=== PATIENT | female | born 2000 | race Caucasian/White ===

== ENCOUNTER 2018-09-14 19:01 | Emergency (ER) | payer MEDICAID ==
[~2018-09-14] VITALS: Ht 160 cm; Wt 104.0 kg
[2018-09-14 22:11] LABS: BASOPHILS % 0.4 % (0.0-2.0); EOSINOPHILS % 1.1 % (0.0-5.0); HEMATOCRIT. 39.6 % (36.0-48.0); HEMOGLOBIN. 13.5 g/dL (12.0-16.0); LYMPHOCYTES % 26.4 % (20.0-50.0); MEAN CORPUSCULAR HEMOGLOBIN 29.9 pg (28.0-32.0); MEAN CORPUSCULAR VOLUME 87.9 fL (81.0-99.0); MEAN PLATELET VOLUME 8.8 fl (7.4-10.4); MONOCYTES % 5.8 % (2.0-8.0); NEUTROPHILS % 66.3 % (40.0-76.0); PLATELET 318 x1000/uL (130-400); RED CELL DISTRIBUTION WIDTH 12.9 % (11.6-14.6)
[2018-09-14 22:17] LABS: CHLORIDE 108 mEq/L (98-107)
[2018-09-14 22:20] LABS: HCG SCREEN NEGATIVE
[2018-09-14] MEDS ORDERED: LIDOCAINE HCL 1% 20ML VIAL (Pyxis) INJ ONE (22:20)
[2018-09-14 23:31] LABS: GLUCOSE CSF 56 mg/dL (41-75)
[2018-09-15 01:37] VITALS: BP 118/75
== END 2018-09-15 01:39 | disposition home or self-care (01) ==
LOC: ER 23:34
DX: G93.2 Benign intracranial hypertension (principal); R11.2 Nausea with vomiting, unspecified
CPT/HCPCS: 36415; 62270; 70450; 80048; 81025; 82945; 84157; 84703; 85025; 87070; 87205; 89050; 99284; J3490

== ENCOUNTER 2021-02-02 01:47 | Emergency (ER) | payer MEDICAID ==
[~2021-02-02] VITALS: Ht 162.6 cm; Wt 118.0 kg
[2021-02-02] MEDS ORDERED: ACETAMINOPHEN 325MG TABLET PO STA (02:46)
[2021-02-02 03:00] LABS: BASOPHILS % 0.3 % (0.0-2.0); HEMATOCRIT. 44.3 % (36.0-48.0); MEAN CORPUSCULAR HEMOGLOBIN 29.9 pg (28.0-32.0); MEAN CORPUSCULAR VOLUME 88.1 fL (81.0-99.0); MEAN PLATELET VOLUME 8.4 fl (7.4-10.4); MONOCYTES % 8.8 % (2.0-8.0); NEUTROPHILS % 78.9 % (40.0-76.0); PLATELET 265 x1000/uL (130-400); RED BLOOD CELL COUNT 5.02 mill/uL (4.2-5.4); RED CELL DISTRIBUTION WIDTH 13.2 % (11.6-14.6)
[2021-02-02] MEDS ORDERED: DIPHENHYDRAMINE 50MG/ML VIAL IV ONE (03:00)
[2021-02-02] MEDS ORDERED: SODIUM CHLORIDE 0.9% 1,000 ML IV ONE (03:00)
[2021-02-02] MEDS ORDERED: METOCLOPRAMIDE HCL 10MG/2ML VIAL IV ONE (03:00)
[2021-02-02 03:05] LABS: CHLORIDE 100 mEq/L (98-107)
[2021-02-02 03:42] LABS: CLARITY URINE CLOUDY (CLEAR); COLOR URINE DARK YELLOW (YELLOW); KETONES URINE TRACE (NEGATIVE); LEUKOCYTE ESTERASE URINE NEGATIVE (NEGATIVE); NITRITE URINE NEGATIVE (NEGATIVE); OCCULT BLOOD URINE TRACE (NEGATIVE); PROTEIN URINE 3+ (NEGATIVE); SPECIFIC GRAVITY URINE 1.027 (1.005-1.030); UROBILINOGEN URINE 0.2 E.U./dL (0.2-1.0)
[2021-02-02] MEDS ORDERED: CEFTRIAXONE 1 G PREMIX 50 ML IV ONE (04:00)
[2021-02-02] MEDS ORDERED: VANCOMYCIN 1 G PREMIX 200 ML IV ONE (04:00)
[2021-02-02 04:13] LABS: PROTHROMBIN TIME 10.9 sec (9.6-11.0)
[2021-02-02] MEDS ORDERED: DEXAMETHASONE 10 MG/ML VIAL IV ONE (04:15)
[2021-02-02 07:55] VITALS: BP 127/80
== END 2021-02-02 09:10 | disposition short-term general hospital (02) ==
LOC: ER 01:47
DX: A41.9 Sepsis, unspecified organism (principal); G93.2 Benign intracranial hypertension; Z20.822 Contact with and (suspected) exposure to COVID-19
CPT/HCPCS: 36415; 70450; 71045; 80053; 81003; 83605; 84145; 85025; 85610; 87040; 87426; 96365; 96367; 96375; 99291; J0696; J1100; J1200; J2765; J3370

== ENCOUNTER 2023-05-13 22:10 | Emergency (ER) | payer MEDICAID ==
[~2023-05-13] VITALS: Ht 162.6 cm; Wt 125.0 kg
[2023-05-13 22:41] VITALS: O2SAT 98
[2023-05-13 23:46] LABS: CLARITY URINE CLOUDY (CLEAR); COLOR URINE YELLOW (YELLOW); GLUCOSE URINE NEGATIVE (NEGATIVE); KETONES URINE NEGATIVE (NEGATIVE); LEUKOCYTE ESTERASE URINE NEGATIVE (NEGATIVE); NITRITE URINE NEGATIVE (NEGATIVE); OCCULT BLOOD URINE 3+ (NEGATIVE); PH URINE 5.5 (4.5-8.0); PROTEIN URINE NEGATIVE (NEGATIVE); SPECIFIC GRAVITY URINE 1.014 (1.005-1.030); UROBILINOGEN URINE 0.2 E.U./dL (0.2-1.0)
[2023-05-13 23:49] LABS: SQUAMOUS EPITHELIAL CELL URINE 1+ /lpf (RARE/1+); WBC URINE 0-2 /hpf (0-2)
[2023-05-14 01:24] LABS: BASOPHILS % 0.7 % (0.0-2.0); EOSINOPHILS % 1.2 % (0.0-5.0); HEMATOCRIT. 41.6 % (36.0-48.0); HEMOGLOBIN. 14.1 g/dL (12.0-16.0); LYMPHOCYTES % 36.7 % (20.0-50.0); MEAN CORPUSCULAR HEMOGLOBIN 29.5 pg (28.0-32.0); MEAN CORPUSCULAR HGB CONC 33.9 g/dL (31.0-37.0); MEAN CORPUSCULAR VOLUME 86.9 fL (81.0-99.0); MEAN PLATELET VOLUME 8.4 fl (7.4-10.4); MONOCYTES % 5.6 % (2.0-8.0); NEUTROPHILS % 55.8 % (40.0-76.0); PLATELET 338 x1000/uL (130-400); RED BLOOD CELL COUNT 4.78 mill/uL (4.2-5.4); WHITE BLOOD COUNT 9.3 x1000/uL (4.5-11.0)
[2023-05-14 01:27] LABS: CALCIUM 8.9 mg/dL (8.5-10.1); CHLORIDE 108 mEq/L (98-107); INDEX HEMOLYSI 1 (1-3); INDEX ICTERIC 1 (1-4); INDEX LIPEMIC 1 (1-3); POTASSIUM 3.8 mEq/L (3.5-5.1); SODIUM 135 mEq/L (136-145)
[2023-05-14] MEDS ORDERED: DIPHENHYDRAMINE 25MG CAPSULE PO ONE (01:30)
[2023-05-14] MEDS ORDERED: KETOROLAC 30MG/ML VIAL IM ONE (01:30)
[2023-05-14] MEDS ORDERED: METOCLOPRAMIDE HCL 10MG/2ML VIAL IM ONE (01:30)
[2023-05-14 01:31] LABS: CARBON DIOXIDE 24 mEq/L (21-32); CREATININE 0.7 mg/dL (0.6-1.3); GLUCOSE 91 mg/dL (70-105); UREA NITROGEN BLOOD 8 mg/dL (7-21)
[2023-05-14 04:57] VITALS: BP 112/74
[2023-05-14 04:58] VITALS: PULSE 109; RESP 12; TEMP 99.4
[2023-05-14 08:53] LABS: BACTERIA URINE 1+
[2023-05-14 08:54] LABS: RBC URINE 0-2 /hpf (0-2); YEAST URINE NONE SEEN
== END 2023-05-14 04:59 | disposition home or self-care (01) ==
LOC: ER 22:13
DX: R51.9 Headache, unspecified (principal); G93.2 Benign intracranial hypertension
CPT/HCPCS: 36415; 80048; 81003; 81025; 85025; 99284